=== PATIENT | male | born 1985 | race Caucasian/White ===

== ENCOUNTER 2019-06-29 13:40 | Emergency (ER) | payer OTHER ==
[2019-06-29 13:46] VITALS: TEMP 97.2
[2019-06-29] MEDS ORDERED: PHENYLEPHRINE 5 MG, SODIUM CHLORIDE 0.9% (PF) VIAL 9.5 ML INTRA-CAVE PRN ×2 (14:29)
[2019-06-29] MEDS ORDERED: SODIUM CHLORIDE 0.9% (PF) 10 ML VIAL ONE (14:41)
--- NOTE | 2019-06-29 14:48 | ED ---
Recheck HPI - General Chief Complaint: Recheck/Abnormal Lab/Rx Stated Complaint: priapism Time Seen by Provider: 06/29/19 14:07 Source: patient Mode of arrival: ambulatory Limitations: no limitations - History of Present Illness Initial Comments: 34-year-old male with history of Parkinson's presents emergency room for chief complaint of sustaining erection roughly 9 hours. Patient states he woke up at 3 AM with an erection. Patient states he hasn't been unable to get the erection to go away. Patient states that 2 weeks ago he had a 12 hour episode of priapism he denies medications at that time. Patient states he had injections performed at [facility] at that time. Patient states that this causes symptoms to go away. Patient states after that he did have difficulty with erections. He states that this caused him to buy what he said was a prescription erection medication from a local "store" but will no disclose the name. patient states that he had an erection that day and it went away but he woke up the next day with another erection at 4 hour he presenting again to [facility]. He had injections done and symptoms relieved. Patient states that today without medication use he had erection lasting > 9 hours. Patient denies sick cell, abdominal pain, bleeding disorders. Patient denies any other complaints. - Related Data Allergies Allergy/AdvReac Type Severity Reaction Status Date / Time No Known Allergies Allergy Verified 06/29/19 13:46 Review of Systems ROS Statement: Those systems with pertinent positive or pertinent negative responses have been documented in the HPI. ROS Other: All systems not noted in ROS Statement are negative. Past Medical History Past Medical History: No Reported History History of Any Multi-Drug Resistant Organisms: None Reported Past Surgical History: No Surgical Hx Reported Past Psychological History: No Psychological Hx Reported Smoking Status: Current every day smoker Past Alcohol Use History: None Reported Past Drug Use History: None Reported General Exam - General Exam Comments Initial Comments: General: The patient is awake and alert, in no distress, and does not appear acutely ill. Eye: Pupils are equal, round and reactive to light, extra-ocular movements are intact. No nystagmus. There is normal conjunctiva bilaterally. No signs of icterus. Cardiovascular: There is a regular rate and rhythm. No murmur, rub or gallop is appreciated. Respiratory: Lungs are clear to auscultation, respirations are non-labored, b reath sounds are equal. No wheezes, stridor, rales, or rhonchi. Gastrointestinal: Soft, non-distended, non-tender abdomen without masses or organomegaly noted. There is no rebound or guarding present. Musculoskeletal: Normal ROM, no tenderness. Strength 5/5. Sensation intact. Radial pulses equal bilaterally 2+. Neurological: A&O x 3. CN II-XII intact grossly, There are no obvious motor or sensory deficits. Coordination appears grossly intact. Speech is normal. Skin: Skin is warm and dry and no rashes or lesions are noted. Erect penis circumcised, no tesicular swelling, vertical lie Psychiatric: Cooperative, appropriate mood & affect, normal judgment. Limitations: no limitations Course Vital Signs 06/29/19 06/29/19 13:43 16:32 Temperature 97.2 F L Pulse Rate 101 H 82 Respiratory 18 14 Rate Blood Pressure 160/88 150/97 O2 Sat by Pulse 98 100 Oximetry Medical Decision Making - Medical Decision Making 34-year-old male presents emergency department for chief complaint of prolonged erection. >9 hours. Patient has phenylephrine 500mcg/mL,0.5ml was injected into the corpus callosum 3 & 9 positions by my colleague Scot Mcclain PA-C after discussing the case with attending Dr. Keane. After 15 minutes patient's erection 16. Patient is given 0.25 mg of terbutaline in the deltoid. Upon reevaluation patient had no longer sustained erection. Patient getting his close on stating his rate to go home. Patient states he does have some aching pain in the penis. I discussed the importance of follow-up with urology. Return parameters were discussed, I discussed the case attending provider and at this time feel patient is stable for discharge and outpatietn f/u. Disposition Clinical Impression: Priapism Disposition: HOME SELF-CARE Condition: Good Instructions (If sedation given, give patient instructions): Priapism (ED) Additional Instructions: Please use medication as discussed. Please follow-up with urology in the next week. Please return to emergency room if the symptoms increase or worsen or for any other concerns. Is patient prescribed a controlled substance at d/c from ED?: No Referrals: Joes Bruce MD [Primary Care Provider] - 1-2 days Time of Disposition: 16:12
[2019-06-29] MEDS ORDERED: TERBUTALINE 1 MG/ML VIAL SQ STA (15:21)
[2019-06-29] MEDS ORDERED: HYDROcodone/APAP 7.5-325MG 1 EACH TAB PO ONE (16:11)
[2019-06-29 16:32] VITALS: BP 150/97; PULSE 82; RESP 14
== END 2019-06-29 16:41 | disposition home or self-care (01) ==
LOC: EC 13:40
DX: N48.30 Priapism, unspecified (principal); F17.200 Nicotine dependence, unspecified, uncomplicated
CPT/HCPCS: 99283; 54235; 96372; J3105; J2370

== ENCOUNTER 2019-07-06 14:10 | Emergency (ER) | payer OTHER ==
[2019-07-06] MEDS ORDERED: PHENYLEPHRINE 1 MG, SODIUM CHLORIDE 0.9% (PF) VIAL 9.9 ML INTRA-CAVE PRN ×2 (14:28)
[2019-07-06] MEDS ORDERED: PHENYLEPHRINE 5 MG, SODIUM CHLORIDE 0.9% (PF) VIAL 9.5 ML INTRA-CAVE PRN ×2 (14:34)
--- NOTE | 2019-07-06 14:40 | ED ---
General Adult HPI - General Chief complaint: Urogenital Stated complaint: Urogenital Time Seen by Provider: 07/06/19 14:22 Source: patient, RN notes reviewed, old records reviewed Mode of arrival: ambulatory Limitations: no limitations - History of Present Illness Initial comments: 34-year-old male patient presents to ED for chief complaint of priapism. P j luis reports this is the fourth time this happened last 2 weeks. Patient reports that he was in the emergency department on similar problem. Patient reports that on this most recent occurrence he has had an erection for approximately 8-10 hours. Patient reports that he has not injected any sort of substance into his penis region. Reports he has not taken any sort of erection inducing medications. Reports that he is having some pain in the region. Declines any history of sickle cell. Declines any other complaints at this time. Systemic: Pt denies fatigue, fever/chills, rash. Pt denies weakness, night sweats, weight loss. Neuro: Pt denies headache, visual disturbances, syncope or pre-syncope. HEENT: Pt denies ocular discharge or irritation, otalgia, rhinorrhea, pharyngitis or notable lymphadenopathy. Cardiopulmonary: Pt denies chest pain, SOB, heart palpitations, dyspnea on exertion. Abdominal/GI: Pt denies abdominal pain, n/v/d. : Pt denies dysuria, burning w/ urination, frequency/urgency. Denies new onset urinary or bowel incontinence. MSK: Pt denies myalgia, loss of strength or function in extremities. Neuro: Pt denies new onset weakness, paresthesias. - Related Data Allergies Allergy/AdvReac Type Severity Reaction Status Date / Time No Known Allergies Allergy Verified 07/06/19 14:19 Review of Systems ROS Statement: Those systems with pertinent positive or pertinent negative responses have been documented in the HPI. ROS Other: All systems not noted in ROS Statement are negative. Past Medical History Past Medical History: No Reported History History of Any Multi-Drug Resistant Organisms: None Reported Past Surgical History: No Surgical Hx Reported Past Psychological History: No Psychological Hx Reported Smoking Status: Current every day smoker Past Alcohol Use History: None Reported Past Drug Use History: None Reported General Exam - General Exam Comments Initial Comments: Constitutional: NAD, AOX3, Pt has pleasant affect. HEENT: NC/AT, trachea midline, neck supple, no lymphadenopathy. Posterior pharynx non erythematous, without exudates. External ears appear normal, without discharge. Mucous membranes moist. Eyes PERRLA, EOM intact. There is no scleral icterus. No pallor noted. Cardiopulmonary: RRR, no murmurs, rubs or gallops, no JVD noted. Lungs CTAB in anterior and posterior vides. No peripheral edema. Abdominal exam: Abdomen soft and non-distended. Abdomen non-tender to palpation in all 4 quadrants. Bowel sounds active in LLQ. No hepatosplenomegaly. No ecchymosis Neuro: CN II-XII grossly intact. No nuchal rigidity. No raccon eyes, no matamoros sign, no hemotympanum. No cervical spinal tenderness. MSK: No posterior calf tenderness bilaterally, homans sign negative bilaterally. Posterior tibialis and radial pulse +2 bilaterally. Sensation intact in upper and lower extremities. Full active ROM in upper and lower extremities, 5/5 stregnth. Gu: Exam displayed priapism. Old resolving ecchymosis on lateral aspect of penis. After phenylephrine injection 3 detumescence was achieved. Limitations: no limitations Course Vital Signs 07/06/19 07/06/19 07/06/19 14:14 17:04 17:34 Temperature 97.8 F 98.2 F Pulse Rate 75 66 Respiratory 16 18 Rate Blood Pressure 134/82 168/75 O2 Sat by Pulse 100 98 Oximetry Medical Decision Making - Medical Decision Making 34-year-old male patient presents to ED for chief complaint of priapism. Patient reports this is the fourth time this happened last 2 weeks. Patient reports that he was in the emergency department on 06/29 for similar problem. Patient reports that on this most recent occurrence he has had an erection for approximately 8-10 hours. Patient reports that he has not injected any sort of substance into his penis region. Reports he has not taken any sort of erection inducing medications. Reports that he is having some pain in the region. Declines any history of sickle cell. Declines any other complaints at this time. Patient vital signs stable, afebrile. Physical exam displayed: Exam displayed priapism. Old resolving ecchymosis on lateral aspect of penis. Patient reports of the ecchymoses were from a prior injection for priapism. After phenylephrine injection 3 detumescence was achieved. At patient request terbutaline was initiated prior tophenylephrine. Terbutaline proved to be ineffective. Area was cleaned with ChloraPrep prior to procedure and each inection. Signed consent was obtained. Risks and benefits are discussed and patient verbalized understanding. Aspiration of small amount of blood from a 27-gauge needle was performed. Injection of phenylephine was then performed. 3 injections of phenylephrine at 3 and 9 oclock were necessary to achieve detumescence. These were approximately 30 minutes apart. Further history taking revealed that patient has had priapism many times the last 2 years. He states that this first occurred 2 years ago when he had a couple of recurrences of priapism for which he never presented to the emergency department. Patient then reports that 2 weeks ago he had a case of priapism for which she went to [facility] and had injections. Patient reports that he then had 2 priapism's for which she did not presents to Hospital which resolved after an undetermined period of time. He then had the occurrence one week ago for which she presented to this emergency department. Patient also reports that he has taken Viagra which may precipitated this. Denies taking any today. Reports that he took it prior to some of the previous priapism complaints. Patient will be discharged. Patient has appointment with primary care provider tomorrow. A lso follow-up with urologist tomorrow. Patient told not to take Viagra or Adderall until follow-up with primary care provider or urologist. And return to ER if condition worsens in any way. This case was discussed with Dr. Roman who was also present for procedure. Disposition Clinical Impression: Priapism Disposition: HOME SELF-CARE Condition: Stable Instructions (If sedation given, give patient instructions): Priapism (ED) Additional Instructions: Follow up with primary care provider tomorrow as scheduled. Follow-up with urologist tomorrow. Return immediately to ER if condition worsens in any way. Do not take any medications including Viagra which may induce an erection. Do not take adderall until follow up with urology. Is patient prescribed a controlled substance at d/c from ED?: No Referrals: Jose Bruce MD [Primary Care Provider] - 1-2 days Khang Orellana MD [STAFF PHYSICIAN] - 1-2 days
[2019-07-06] MEDS ORDERED: TERBUTALINE 1 MG/ML VIAL SQ STA (14:46)
[2019-07-06] MEDS ORDERED: HYDROcodone/APAP 7.5-325MG 1 EACH TAB PO ONE (14:53)
[2019-07-06 17:05] VITALS: BP 168/75; PULSE 66; RESP 18
[2019-07-06 17:34] VITALS: TEMP 98.2
== END 2019-07-06 17:34 | disposition home or self-care (01) ==
LOC: EC 14:10
DX: N48.30 Priapism, unspecified (principal); R58 Hemorrhage, not elsewhere classified; F17.200 Nicotine dependence, unspecified, uncomplicated
CPT/HCPCS: 99284; 54235; 96372; J3105; J2370

== ENCOUNTER 2020-03-31 18:44 | Emergency (ER) | payer OTHER ==
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
[2020-03-31] MEDS ORDERED: LORazepam 1 MG TAB PO STA (20:26)
[2020-04-01 13:46] LABS: Urine Alcohol Negative (Negative); Urine Barbiturate Negative (Negative); Urine Cocaine Negative (Negative); Urine Methadone Negative (Negative); Urine Opiates Negative (Negative); Urine Phencyclidine Negative (Negative)
[2020-04-02 09:39] VITALS: BP 134/98; PULSE 80; RESP 18; TEMP 97.6
== END 2020-04-01 02:11 | disposition home or self-care (01) ==
LOC: EC 18:44
DX: F15.10 Other stimulant abuse, uncomplicated (principal); F17.200 Nicotine dependence, unspecified, uncomplicated
CPT/HCPCS: 80306; 82075; 99285

== ENCOUNTER 2020-04-04 21:34 | Emergency (ER) | payer OTHER ==
[2020-04-04 21:45] VITALS: BP 155/82; PULSE 80; RESP 18; TEMP 98.7
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
== END 2020-04-05 00:30 | disposition left against medical advice (07) ==
LOC: EC 21:34
DX: S06.0X9A Concussion with loss of consciousness of unspecified duration, initial encounter (principal); R59.0 Localized enlarged lymph nodes; M25.511 Pain in right shoulder; F17.200 Nicotine dependence, unspecified, uncomplicated; Z53.20 Procedure and treatment not carried out because of patient's decision for unspecified reasons; V89.2XXA Person injured in unspecified motor-vehicle accident, traffic, initial encounter
CPT/HCPCS: 70450; 72125; 99284

== ENCOUNTER 2020-10-07 13:06 | Emergency (ER) | payer OTHER ==
[2020-10-07 13:18] VITALS: BP 139/84; PULSE 109; RESP 18; TEMP 98.1
--- NOTE | 2020-10-07 13:23 | ED ---
Male Urogenital HPI - General Chief complaint: Urogenital Stated complaint: Priapism Time Seen by Provider: 10/07/20 13:21 Source: patient Mode of arrival: ambulatory Limitations: no limitations - History of Present Illness Initial comments: Patient is a 35-year-old male presenting to emergency Department with a chief complaint of an erection. Patient states this issue has been ongoing for the past several months. Patient states this occurs whenever he wakes up with "morning wood." Patient states today's case occurred around 2 AM after he woke up from his sleep to go to the bathroom. Patient states the erection will not subside. States this issue has been out when for the past several months. He denies taking any vasodilators. 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 Patient states after the incident occurred, he applied ice compress and was able to get the erection to subside. Patient states the erection is almost fully gone at this time. - Related Data Home Medications Medication Instructions Recorded Confirmed No Known Home Medications 10/07/20 10/07/20 Allergies Allergy/AdvReac Type Severity Reaction Status Date / Time No Known Allergies Allergy Verified 10/07/20 13:39 Review of Systems ROS Statement: Those systems with pertinent positive or pertinent negative responses have been documented in the HPI. ROS Other: All systems not noted in ROS Statement are negative. Past Medical History Past Medical History: No Reported History History of Any Multi-Drug Resistant Organisms: None Reported Past Surgical History: No Surgical Hx Reported Past Psychological History: ADD/ADHD Smoking Status: Current some day smoker Past Alcohol Use History: None Reported Past Drug Use History: Marijuana General Exam Limitations: no limitations General appearance: alert, in no apparent distress, obese Head exam: Present: atraumatic, normocephalic, normal inspection Eye exam: Present: normal appearance, PERRL, EOMI Pupils: Present: normal accommodation ENT exam: Present: normal exam, normal oropharynx, mucous membranes moist, TM's normal bilaterally, normal external ear exam Neck exam: Present: normal inspection, full ROM Respiratory exam: Present: normal lung sounds bilaterally. Absent: respiratory distress, wheezes, rales Cardiovascular Exam: Present: regular rate, normal rhythm, normal heart sounds exam: Present: normal inspection (Mild erection. No tenderness to palpation.). Absent: testicular tenderness, urethral discharge, scrotal swelling, vertical testicular lie, circumcision Extremities exam: Present: normal inspection, full ROM, normal capillary refill. Absent: tenderness Back exam: Present: normal inspection, full ROM. Absent: tenderness, CVA tenderness (R), CVA tenderness (L) Neurological exam: Present: alert, oriented X3 Psychiatric exam: Present: normal affect, normal mood Skin exam: Present: warm, dry, intact, normal color Course Vital Signs 10/07/20 13:14 Temperature 98.1 F Pulse Rate 109 H Respiratory 18 Rate Blood Pressure 139/84 O2 Sat by Pulse 98 Oximetry Medical Decision Making - Medical Decision Making 35-year-old male presenting to emergency Department with a chief complaint of an erection. On physical examination, patient has no significant erection. He is only mildly directed. Rest of examination is unremarkable. Patient not taking any vasodilators. Patient was given ice compress and some Tylenol. On reevaluation the erection has full resolved. Patient will be discharged and advised to follow-up with urology. Return parameters discussed with patient's attending agreeable. Case discussed with physician. Disposition Clinical Impression: Priapism Disposition: HOME SELF-CARE Condition: Stable Instructions (If sedation given, give patient instructions): Priapism (ED) Additional Instructions: Follow-up with urology. Return to emergency department if symptoms worsen. Is patient prescribed a controlled substance at d/c from ED?: No Referrals: Jose Bruce MD [Primary Care Provider] - 1-2 days Time of Disposition: 14:16
[2020-10-07] MEDS ORDERED: ACETAMINOPHEN TAB 500 MG TAB PO STA (13:29)
== END 2020-10-07 14:34 | disposition home or self-care (01) ==
LOC: EC 13:06
DX: N48.39 Other priapism (principal); F17.200 Nicotine dependence, unspecified, uncomplicated
CPT/HCPCS: 99283